=== PATIENT | female | born 1990 | race American Indian/Alaskan Native ===

== ENCOUNTER 2016-11-01 18:32 | Emergency (ER) | payer BC ==
[2016-11-01] MEDS ORDERED: FUL-GLO OP ONE ×2 (20:58→21:03)
[2016-11-01] MEDS ORDERED: TETRACAINE 0.5% ONE (20:58)
[2016-11-01] MEDS ORDERED: TETRACAINE 0.5% OU SCH (21:15)
[2016-11-01] MEDS ORDERED: TETRACAINE 0.5% OU ONE (21:33)
--- NOTE | 2016-11-01 22:06 | Emergency Department Report ---
ED Eye Problem HPI - General Chief complaint: Eye Problems Stated complaint: CORNEA ABRASION Time Seen by Provider: 11/01/16 21:20 Source: patient Mode of arrival: Ambulatory Limitations: No Limitations - History of Present Illness Initial comments: Patient comes in the ER today with complaints of right eye pain since approximately 1:00 this afternoon. Patient states that she was taking her contact lens when she believe she poked herself in the eye with her nails. Patient states she was able to get her contact lens out but she has been in severe pain ever since then. Patient did put some antihistamine eyedrops in her eye to see if that would help but she says it has not improved anything. She denies any other injury. MD chief complaint: eye pain, eye injury -: Sudden, hour(s) (9) - Related Data Previous Rx's Medication Instructions Recorded Last Taken Type Polymyxin B Sulf/Trimethoprim 2 drop OP QID 5 Days 11/01/16 Unknown Rx [Polytrim Eye Drops [id number]/0.1%] Allergies Allergy/AdvReac Type Severity Reaction Status Date / Time No Known Allergies Allergy Verified 11/01/16 21:03 ED Review of Systems ROS: Stated complaint: CORNEA ABRASION Other details as noted in HPI Constitutional: denies: chills, fever Eyes: eye pain (right eye). denies: eye discharge, vision change ENT: denies: ear pain, throat pain Respiratory: denies: cough, shortness of breath, wheezing Cardiovascular: denies: chest pain, palpitations Endocrine: no symptoms reported Gastrointestinal: denies: abdominal pain, nausea, diarrhea Genitourinary: denies: urgency, dysuria, discharge Musculoskeletal: denies: back pain, joint swelling, arthralgia Skin: denies: rash, lesions Neurological: denies: headache, weakness, paresthesias Psychiatric: denies: anxiety, depression Hematological/Lymphatic: denies: easy bleeding, easy bruising ED Past Medical Hx - Past Medical History Previous Medical History?: No - Surgical History Past Surgical History?: Yes Additional Surgical History: right wrist ganglion cyst removal - Social History Smoking Status: Former Smoker Substance Use Type: Alcohol - Medications Home Medications: Home Medications Medication Instructions Recorded Confirmed Last Taken Type Polymyxin B Sulf/Trimethoprim 2 drop OP QID 5 Days 11/01/16 Unknown Rx [Polytrim Eye Drops [id number]/0.1%] ED Physical Exam - General Limitations: No Limitations General appearance: alert, in no apparent distress - Head Head exam: Present: atraumatic, normocephalic - Eye Eye exam: Present: PERRL, EOMI, other (large corneal abrasion noted over iris and pupil of the right eye. No visible foreign body noted in the cornea or eyelids.). Absent: conjunctival injection, periorbital swelling, periorbital tenderness Pupils: Present: normal accommodation - ENT ENT exam: Present: normal exam, normal orophraynx, mucous membranes moist, TM's normal bilaterally, normal external ear exam - Neck Neck exam: Present: normal inspection - Respiratory Respiratory exam: Present: normal lung sounds bilaterally. Absent: respiratory distress - Cardiovascular Cardiovascular Exam: Present: regular rate, normal rhythm. Absent: systolic murmur, diastolic murmur, rubs, gallop - GI/Abdominal GI/Abdominal exam: Present: soft, normal bowel sounds - Extremities Exam Extremities exam: Present: normal inspection - Back Exam Back exam: Present: normal inspection - Neurological Exam Neurological exam: Present: alert, oriented X3 - Psychiatric Psychiatric exam: Present: normal affect, normal mood - Skin Skin exam: Present: warm, dry, intact, normal color. Absent: rash ED Course Vital Signs 11/01/16 18:37 Temperature 98.7 F Pulse Rate 81 Respiratory 20 Rate Blood Pressure 120/76 O2 Sat by Pulse 100 Oximetry - Eye Procedure Alcaine Drops Administered: Yes (tetracaine ophthalmic drops to right eye) Eye Irrigated w/ Saline (ccs): 20 Progress: After tetracaine ophthalmic eyedrops administered to right eye, I was stained with forcing ophthalmic strip. Large amount of forcing uptake to corneal abrasion centrally over her pupil and iris. No foreign body visualized. Patient tolerated exploration and procedure very well without any complications or difficulties. Patient states she is feeling much better after treatment in the ER. Patient was placed in bulky gauze over her right eye for the next 24 hours. I will start patient on some ophthalmic eyedrops and she is to follow- up with her grants director in the next 2 days or return to the ER if symptoms fail to resolve or worsen. Patient is in agreement with treatment plan the patient is stable for discharge. ED Medical Decision Making - Medical Decision Making Patient is nontoxic and hemodynamically stable. Patient tolerated procedure very well following consultations. Instructed patient to follow up with her doctor in the next couple days to ensure resolution of her injury. Patient is in agreement with plan a patient stable for discharge. Critical care attestation.: If time is entered above; I have spent that time in minutes in the direct care of this critically ill patient, excluding procedure time. ED Disposition Clinical Impression: Corneal abrasion, right, Pain, eye, right Disposition: DC-01 TO HOME OR SELFCARE Is pt being admited?: No Does the pt Need Aspirin: No Condition: Good Instructions: Corneal Abrasion (ED) Prescriptions: Polymyxin B Sulf/Trimethoprim [Polytrim Eye Drops [id number]/0.1%] 2 drop OP QID 5 Days Referrals: PRIMARY CARE, [Primary Care Provider] - 3-5 Days eye doctor, your [Other] - 2-3 Days Time of Disposition: 22:09
[2016-11-01 22:34] VITALS: BP 122/73
== END 2016-11-01 22:34 | disposition home or self-care (01) ==
LOC: ED 18:32
DX: S05.01XA Injury of conjunctiva and corneal abrasion without foreign body, right eye, initial encounter (principal); Z87.891 Personal history of nicotine dependence; X58.XXXA Exposure to other specified factors, initial encounter; Y93.89 Activity, other specified; Y99.9 Unspecified external cause status; Y92.89 Other specified places as the place of occurrence of the external cause
CPT/HCPCS: 99283